=== PATIENT | male | born 1970 | race Caucasian/White ===

== ENCOUNTER 2018-02-01 20:39 | Emergency (ER) | payer SELFPAY ==
[~2018-02-01] VITALS: Ht 152.4 cm; Wt 74.8 kg
[2018-02-01] MEDS ORDERED: LORAZEPAM INJ 2 MG/ML VIAL IM ONE (21:00)
[2018-02-01] MEDS ORDERED: diphenhydrAMINE HCL 50 MG/ML VIAL IM ONE (21:00)
[2018-02-01] MEDS ORDERED: HALOPERIDOL LACTATE INJ 5 MG/ML VIAL IM ONE (21:00)
[2018-02-01 21:12] LABS: BASOPHILS # (AUTO) 0.1 /CMM (0.0-0.2); BASOPHILS % (AUTO) 1.4 % (0.0-2.0); EOSINOPHILS % (AUTO) 4.3 % (0.0-6.0); HEMATOCRIT 42 % (39-51); HEMOGLOBIN 14.3 g/dL (13.5-17.5); LYMPHOCYTES # (AUTO) 4.1 /CMM (0.8-4.8); LYMPHOCYTES % (AUTO) 44.8 % (20.0-44.0); MEAN CORPUSCULAR HGB CONC 35 g/dl (31.0-36.0); MEAN CORPUSCULAR VOLUME 95 fL (80-96); MONOCYTES # (AUTO) 0.8 /CMM (0.1-1.30); MONOCYTES % (AUTO) 8.7 % (2.0-12.0); NEUTROPHILS # (AUTO) 3.7 /CMM (1.8-8.9); NEUTROPHILS % (AUTO) 40.8 % (43.0-81.0); PLATELET COUNT (AUTO) 330 /CMM (150-450); RDW COEFFICIENT OF VARIATION 12.7 (11.5-15.0); RED BLOOD CELL COUNT(AUTO) 4.38 MIL/uL (4.5-6.0); WHITE BLOOD COUNT (AUTO) 9.1 K/uL (4.3-11.0)
[2018-02-01 21:23] LABS: CALCIUM, SERUM 8.5 mg/dL (8.5-10.1); CARBON DIOXIDE 23 mmol/L (21-32); CHLORIDE 106 mmol/L (98-107); GLUCOSE 109 mg/dL (74-106); POTASSIUM 3.6 mmol/L (3.5-5.1); SODIUM SERUM 141 mmol/L (136-145); UREA NITROGEN, BLOOD 8 mg/dL (7-18)
--- NOTE | 2018-02-01 21:25 | NUR ---
to bed 11 bib paramedics c/o altered, etoh. pt verbally abusive, screaming. pt aaox2 no acute distress noted, resp even and unlabored. place pt on cardiac monitoring, continuous pox, o2@2l/nc. will carry out orders.
[2018-02-01 21:30] LABS: ALANINE AMINOTRANSFERASE 96 U/L (12-78); ALBUMIN 3.1 g/dL (3.4-5.0); ALCOHOL, BLOOD 396 mg/dL (0-0); ALKALINE PHOSPHATASE 132 U/L (46-116); ASPARTATE AMINOTRANSFERASE 133 U/L (15-37); BILIRUBIN,DIRECT 0.2 mg/dL (0.0-0.2); BILIRUBIN,TOTAL 0.4 mg/dL (0.2-1.0); TOTAL PROTEIN, SERUM 7.8 g/dL (6.4-8.2)
[2018-02-01 21:31] LABS: ACETAMINOPHEN < 2 ug/ml (10-30); SALICYLATE 1.1 mg/dL (2.8-20.0)
[2018-02-01] MEDS ORDERED: LORAZEPAM INJ 2 MG/ML VIAL ONE (21:41)
[2018-02-01] MEDS ORDERED: HALOPERIDOL LACTATE INJ 5 MG/ML VIAL ONE (21:41)
[2018-02-01] MEDS ORDERED: diphenhydrAMINE HCL 50 MG/ML VIAL ONE (21:41)
--- NOTE | 2018-02-01 21:46 | NUR ---
pt medicated as ordered.
--- NOTE | 2018-02-01 23:47 | NUR ---
pt asleep, no acute distress noted, resp even and unlabored. call light within reach. will continue to monitor pt closely.
--- NOTE | 2018-02-02 01:26 | NUR ---
pt asleep, no acute distress noted, resp even and unlabored. call light within reach. will continue to monitor pt closely.
--- NOTE | 2018-02-02 03:34 | NUR ---
pt awake, pt noted with unsteady gait. assisted pt back to bed. call light yang cantrell. will continue to monitor pt closely.
--- NOTE | 2018-02-02 07:08 | NUR ---
pt asleep, no acute distress noted, resp even and unlabored. call light within reach. will continue to monitor pt closely.
--- NOTE | 2018-02-02 07:13 | NUR ---
REPORT GIVEN TO AM SHIFT MIRACLE MENA.
--- NOTE | 2018-02-02 08:29 | NUR ---
Patient discharged to home in stable condition. Written and verbal after care instructions given. Patient verbalizes understanding of instruction. PT ALERT ORIENTED AMBULATORY STEADY GAIT. GIVEN WATER ABLE TO SWALLOW.
[2018-02-02 08:32] VITALS: BP 121/70
== END 2018-02-02 08:33 | disposition home or self-care (01) ==
LOC: ER 20:42
DX: F10.129 Alcohol abuse with intoxication, unspecified (principal)
CPT/HCPCS: 36415; 80048-TC; 80076-TC; 85025-TC; A4606; G0480; J1200; J1630; J2060; Z7610

== ENCOUNTER 2019-11-05 17:18 | Emergency (ER) | payer SELFPAY ==
[~2019-11-05] VITALS: Ht 162.6 cm; Wt 68.9 kg
--- NOTE | 2019-11-05 17:20 | NUR ---
BIBRA 89, FOUND IN A U-HAUL TRUCK, ETOH, BS 202. TO ER BED 13, HOOKED TO MONITOR, PATIENT AWAKE, AOx2, CHENAGE DTO HOSP GOWN, PROVIDED W WARM BLANKET, AWAITING MD MARK.
--- NOTE | 2019-11-05 17:22 | NUR ---
DR PICKARD AT BEDSIDE
--- NOTE | 2019-11-05 20:24 | NUR ---
PT RESTING COMFORTABLY IN BED. VITAL SIGNS STABLE. STILL APPEARS INTOXICATED. WILL CONTINUE TO MONITOR
--- NOTE | 2019-11-05 21:15 | NUR ---
PT AAOX4. AMBULATORY TO RESTROOM WITH STEADY GAIT
[2019-11-05 21:28] VITALS: BP 122/79
--- NOTE | 2019-11-05 21:28 | NUR ---
Note trev in ED - 11/05/19 at 2130 by CHE Patient given written and verbal discharge instructions. Patient verbalizes understanding of instructions. Patient is ambulatory with steady gait. Refuses offer of mcc placement. Patient given list of available shelters in surrounding area.
--- NOTE | 2019-11-05 21:30 | NUR ---
PT AWAKE, AAOX4. AMBULATORY WITH STEADY GAIT. PER DR. MONTOYA, PT MEDICALLY CLEARED FOR DISCHARGE. Patient given written and verbal discharge instructions. Patient verbalizes understanding of instructions. Patient is ambulatory with steady gait. Refuses offer of group home placement. Patient given list of available shelters in surrounding area.
== END 2019-11-05 21:31 | disposition home or self-care (01) ==
LOC: ER 17:19
DX: F10.129 Alcohol abuse with intoxication, unspecified (principal); Z60.2 Problems related to living alone; Y90.8 Blood alcohol level of 240 mg/100 ml or more
CPT/HCPCS: 36415; G0480

== ENCOUNTER 2021-05-01 12:13 | Emergency (ER) | payer SELFPAY ==
[~2021-05-01] VITALS: Ht 149.9 cm; Wt 74.8 kg
--- NOTE | 2021-05-01 12:13 | NUR ---
PT BIBRA STREETS, ETOH. C/O WEAKNESS. PT IS AAOX4, NOT IN RESPIRATORY DISTRESS, HOOKED TO DEAN OF WOMEN, KEPT RESTED AND COMFORTABLE. WILL CONTINUE TO MONITOR.
--- NOTE | 2021-05-01 12:53 | NUR ---
SEEN AND EXAMINED BY .
--- NOTE | 2021-05-01 13:33 | NUR ---
PT IS WHEELED TO CT SCAN VIA [facility].
[2021-05-01 15:36] VITALS: BP 148/99
--- NOTE | 2021-05-01 15:36 | NUR ---
AMBULATORY W/ STEADY GAIT. AAOX3. PROVIDED W/ MEAL TRAY. REQUESTED TO BE DISCHARGE. MEDICALLY CLEARED. DISCHARGE IN STABLE CONDITION.
== END 2021-05-01 15:36 | disposition home or self-care (01) ==
LOC: ER 12:15
DX: F10.129 Alcohol abuse with intoxication, unspecified (principal); R41.82 Altered mental status, unspecified; Z60.2 Problems related to living alone; Y90.9 Presence of alcohol in blood, level not specified
CPT/HCPCS: 70450-TC

== ENCOUNTER 2021-10-12 19:28 | Inpatient (IN) | payer OTHER ==
[~2021-10-12] VITALS: Ht 170.2 cm; Wt 77.1 kg
--- NOTE | 2021-10-12 19:40 | NUR ---
PATIENT BIBRA [address] [facility] FOR ETOH. PATIENT AWAKE AND VERBALLY RESPONSIVE. RR EVEN AND UNLABORED, NO SOB NOTED. PATIENT CONNECTED TO BAGGING SALVAGER AND POX. SITTER AT BEDSIDE.
[2021-10-12] MEDS ORDERED: NAPROXEN 250 MG TABLET ONE (19:54)
--- NOTE | 2021-10-12 19:59 | NUR ---
UNABLE TO PROVIDE URINE SAMPLE AT THIS TIME . WILL F/U
[2021-10-12] MEDS ORDERED: NAPROXEN 250 MG TABLET PO ONE (20:00)
[2021-10-12 20:02] LABS: HEMOGLOBIN 11.1 g/dL (13.5-17.5)
[2021-10-12 20:05] LABS: BASOPHILS % (AUTO) 0.4 % (0.0-2.0); EOSINOPHILS % (AUTO) 2.5 % (0.0-6.0); HEMATOCRIT 34 % (39-51); LYMPHOCYTES % (AUTO) 25.7 % (20.0-44.0); MEAN CORPUSCULAR HGB CONC 33 g/dl (31.0-36.0); MEAN CORPUSCULAR VOLUME 88 fL (80-96); MONOCYTES # (AUTO) 0.4 K/uL (0.1-1.30); MONOCYTES % (AUTO) 5.4 % (2.0-12.0); NEUTROPHILS # (AUTO) 5.1 K/uL (1.8-8.9); RED BLOOD CELL COUNT(AUTO) 3.86 MIL/uL (4.5-6.0); WHITE BLOOD COUNT (AUTO) 7.7 K/uL (4.3-11.0)
[2021-10-12 20:06] LABS: PLATELET COUNT (AUTO) 45 K/uL (150-450)
[2021-10-12 20:16] LABS: ALBUMIN 3.1 g/dL (3.4-5.0); BILIRUBIN,DIRECT 6.4 mg/dL (0.0-0.2); BILIRUBIN,TOTAL 8.7 mg/dL (0.2-1.0); CALCIUM, SERUM 8.3 mg/dL (8.5-10.1); CREATININE 0.9 mg/dL (0.6-1.3); POTASSIUM 3.1 mmol/L (3.5-5.1); TOTAL PROTEIN, SERUM 8.3 g/dL (6.4-8.2)
[2021-10-12] MEDS ORDERED: FOLIC ACID 1 MG TABLET ONE (20:27)
[2021-10-12] MEDS ORDERED: THIAMINE HCL 100 MG TABLET ONE (20:28)
[2021-10-12] MEDS ORDERED: CYANOCOBALAMIN 500 MCG TABLET ONE (20:28)
[2021-10-12] MEDS ORDERED: THIAMINE HCL 100 MG TABLET PO ONE (20:30)
[2021-10-12] MEDS ORDERED: FOLIC ACID 1 MG TABLET PO ONE (20:30)
[2021-10-12] MEDS ORDERED: Thiamine 100 MG in IV D5W 50 ML IV SCH (20:30)
[2021-10-12] MEDS ORDERED: CYANOCOBALAMIN 500 MCG TABLET PO SCH (20:30)
[2021-10-12] MEDS ORDERED: IV NS 0.9% 1,000 ML BAG IV ONE (20:30)
[2021-10-12] MEDS ORDERED: POTASSIUM CHLORIDE 20 MEQ TAB.PRT.SR PO ONE ×2 (21:00→21:28)
[2021-10-12 21:03] LABS: BAND % (MANUAL) 1 % (0.0-5.0); LYMPHOCYTES % (MANUAL) 21 % (16-48); NEUTROPHILS % (MANUAL) 70 (42-76)
[2021-10-12 21:04] LABS: EOSINOPHILS % (MANUAL) 3 % (0-4); MONOCYTES % (MANUAL) 5 % (0-11.0)
[2021-10-12] MEDS ORDERED: HALOPERIDOL LACTATE INJ 5 MG/ML VIAL ONE (21:23)
[2021-10-12] MEDS ORDERED: diphenhydrAMINE HCL 50 MG/ML VIAL ONE (21:23)
[2021-10-12] MEDS ORDERED: LORAZEPAM INJ 2 MG/ML VIAL ONE (21:24)
--- NOTE | 2021-10-12 21:28 | NUR ---
PT AGITATED, SCREAMING, YELLING. PT MEDICATED ORDERED.
[2021-10-12] MEDS ORDERED: HALOPERIDOL LACTATE INJ 5 MG/ML VIAL IM ONE (21:30)
[2021-10-12] MEDS ORDERED: diphenhydrAMINE HCL 50 MG/ML VIAL IM ONE (21:30)
[2021-10-12] MEDS ORDERED: LORAZEPAM INJ 2 MG/ML VIAL IM ONE (21:30)
--- NOTE | 2021-10-13 01:24 | NUR ---
RESTING COMFORTABLY. VSS.
--- NOTE | 2021-10-13 06:39 | NUR ---
ASLEEP, ON MONITOR, AND PULSE OX.
--- NOTE | 2021-10-13 08:01 | NUR ---
THE PATIENT IS RECEIVED IN ER BED #13. SLEEPING, RESPONSIVE TO VERBAL STIMULI. RESPIRATION REGULAR AND UNLABORED. WILL CONTINUE TO MONITOR THE PATIENT.
--- NOTE | 2021-10-13 11:12 | NUR ---
SS consult: SS consult requested for ETOH abuse. The pt. is a 51 year old male who is A&O X 3. The pt. appears disheveled. Pt. made good eye contact and speech is WNL. TIFF explored pt.'s living situation and pt. stated he has been experiencing homelessness for the past 10 years and sleeps "on the street". TIFF explored pt.'s drug & ETOH use. Pt. states he drinks about every 2 day and will drink "anything I can get my hands on. Pt. stated he last drank Vodka yesterday. Pt. stated alcohol is a problem for him. SW offered referral for rehab and pt. is agreeable. SW expored pt.'s mental health Hx. Pt. stated he has Hx. of Schizophrenia and has been prescribed medications in the past and was non compliant. Pt. cannot name which medications. Pt. denies current SI. Pt. stated he is experiencing intermittent thoughts of hurting others and also experiencing visual and auditory hallucinations that tell pt.,"They want to kill me". TIFF asked pt. if there is anyone specifically that he has thoughts of hurting. Pt. statedit sis no one is specific. Pt. is agreeable to psychiatric Tx to prevent him from possibly hurting anyone. Pt. roque sparanoid thoughts. Pt. remained cooperative throughout interview. TIFF provided pt. with homeless resources and pt. accepted them. Pt. signed homeless waiver and it was placed in the pt.'s chart. TIFF faxed clinical[facility] [[facility] [place] [address] FAX:[phone]] for inpatient psychiatric treatment and alcohol abuse Tx. Resources provided include: Year-round shelters: Virden [facility] [address] [place] [place] [address] ; [place] [facility] [address] [place] [address]; [facility] Pgutbke70[address] [facility] [address] Winter Shelters: SPA 2 | [facility] AlejandracProvider: [facility] Address: Confidential (call for location ) Population Served: Coed # of Beds: 57 SPA 4 | [facility] Provider: Home at Last Address: [address] [facility], [address] # of Beds: 49 Population Served: Coed SPA 6 | [facility] Provider: Home at Last Address: [address] [facility], [address] # of Beds: 49 Population Served: Coed [facility] Provider: Magdiel Wilson FLD Address: [address] [facility] [address] # of Beds: 20 Population Served: Women MIRELLA Facility Provider: Home at Last Address: [address] [facility] [address] # of Beds: 30 Population Served: Women SPA 8 | [facility] Provider: Shawan esquivel Leny Address: [address] [facility] [address] # of Beds: 65 Population Served: Coed Hygiene: [place] [facility]: [address] [facility] ; [facility] [facility] [address] [facility] ; [facility] 6[address] [facility] . Food Resources: [place] [employer] [facility] at [facility]- 5700 [facility]; Meet Each Need with Dignity ([facility]) [address] [facility]; [facility] Food Pantry 1622 [facility]; [facility] 8514 [facility]. Mental Health resources provided: [facility] [address] [place] [address] ; [facility] [address] [facility] [address], [place] [address] ; Sheree Amin [facility] [address] [place] [address] ; [facility] [place], [place] [phone] Healthcare Clinics: [facility] [address], [address] [place]. [place] ; [facility] [address] [facility] [address] [place] [address]; [place] [address] [place] [address] [phone]) [phone] Counseling--Outpatient Located Within [facility] [address] [facility], [place] [address] (Specializes in in-depth psychotherapy for emotional distress: anxiety, depression, interpersonal conflicts, life transitions, childhood abuse) [facility] [address] [place] [address] (Assist with solving problem marital difficulties, separation & divorce, aging parents, & grief, chronic & terminal illness) [facility] [address] [place] [address] (Deal with loss & grief, anxiety, marital difficulties) Homebound/Mental Health Services [address], [address] [place] [address] (Provide in-home mental services to people who are incapable of leaving their homes) Organization for Needs of the Elderly Senior Service/Resource Center [address] [place] [address] [facility] [address] [place] [address] [address] [facility] Partial Hospitalization and Intensive Outpatient Program (Managed Care and [place] Only)[address] Reynold Jacobson. [facility] [phone] [facility] Partial Hospitalization and Outpatient Cerfvgi01066 [address] [place], [place] [phone] [facility] [place] Ccd[address] [place], [place] [phone] [facility] David Arana Partial Hospitalization and Outpatient Ilujgvh78775 Roman Bowman, [phone] Substance Abuse resources provided included: [facility] Substance Abuse Self-Helpline ([facility]) ; CRI -HELP [address] [facility]. [place] [address] ; [facility] [place] [address] [facility] [address] ; [facility] Rehabilitation Program [address] [facility]. [place] [phone] ; [facility] 400 [facility] [address] ; [facility] 4940 [facility] [phone] ; Marie [facility] 909 [facility] [place] [phone] ; [facility] Substance Abuse Helpline([facility])-[facility] ; [facility] ; [facility] [place]; [facility] [place]; I-ADARP Inter Agency Drug Abuse Recovery David Arana; [place] [facility] Ful[place]; [place] Fulda; [facility] [place]; [facility] [place], [facility]; Alcoholics Anonymous -SFV; Qy-Lpqp-Cluklwc ; Marijuana Anonymous -SFV; Narcotics Anonymous [email or web address];
--- NOTE | 2021-10-13 13:05 | NUR ---
COVID ANTIGEN SWAB COLLECTED AND SENT TO LAB
--- NOTE | 2021-10-13 23:58 | NUR ---
JUSTICE SAN MD SPEAKING WITH JERONIMO PALOMINO
[2021-10-14] MEDS ORDERED: LORAZEPAM INJ 2 MG/ML VIAL IV ONE
[2021-10-14] MEDS ORDERED: ACETAMINOPHEN 325 MG TABLET PO PRN (00:30)
[2021-10-14] MEDS ORDERED: ONDANSETRON HCL/PF 4 MG/2 ML VIAL IVP PRN (00:30)
[2021-10-14] MEDS ORDERED: MAGNESIUM HYDROXIDE 30 ML UDC PO PRN (00:30)
[2021-10-14] MEDS ORDERED: ZOLPIDEM TARTRATE 5 MG TABLET PO PRN (00:30)
[2021-10-14] MEDS ORDERED: MAG HYDROX/AL HYDROX/SIMETH 30 ML UDC PO PRN (00:30)
[2021-10-14] MEDS ORDERED: Z GUARD REMEDY 2 OZ OINT TP PRN ×2 (00:30→07:30)
[2021-10-14] MEDS ORDERED: IV NS 0.9% 1,000 ML IV PRN ×2 (00:30→11:00)
[2021-10-14] MEDS ORDERED: LORAZEPAM INJ 2 MG/ML VIAL IV PRN (00:30)
--- NOTE | 2021-10-14 00:58 | NUR ---
COVID SWAB SENT TO LAB
--- NOTE | 2021-10-14 01:45 | NUR ---
Patient is resting comfortably in bed with eyes closed. Easily aroused. VSS
--- NOTE | 2021-10-14 02:30 | NUR ---
Patient is resting comfortably in bed with eyes closed. Easily aroused. VSS
--- NOTE | 2021-10-14 06:23 | NUR ---
pt sleeping, attached to monitor and pox.
--- NOTE | 2021-10-14 07:31 | NUR ---
GAVE REPORT TO MIRACLE FARIA FOR ERIC
[2021-10-14] MEDS ORDERED: PANTOPRAZOLE 40 MG VIAL IV SCH (09:00)
[2021-10-14] MEDS ORDERED: PANTOPRAZOLE 40 MG VIAL ONE (09:50)
[2021-10-14] MEDS ORDERED: POTASSIUM CHLORIDE 20 MEQ TAB.PRT.SR PO SCH (11:00)
[2021-10-14] MEDS ORDERED: POTASSIUM CHLORIDE 20 MEQ TAB.PRT.SR PO ONE (11:32)
--- NOTE | 2021-10-14 13:15 | NUR ---
LEFT AMA, REFUSED TO SIGN
--- NOTE | 2021-10-14 13:45 | NUR ---
TFIF LEE AT BEDSIDE
--- NOTE | 2021-10-14 14:15 | NUR ---
IV removed. Catheter intact and site benign. Pressure and 4x4 applied to site. No bleeding noted.Patient discharged to home in stable condition. Written and verbal after care instructions given. Patient verbalizes understanding of instruction.
--- NOTE | 2021-10-14 14:15 | NUR ---
LEFT AMA, REFUSED TO SIGN
--- NOTE | 2021-10-14 14:37 | NUR ---
"SS Consult: SS consult for ETOH. Pt. Is a 51-year-old male. Pt. demonstrates adequate insight to the reason for hospitalization. Pt. was oriented x3, alert, and cooperative. During interview, pt. was capable of following directions, made appropriate eye-contact, and appeared tired. Pt.'s speech was at a normal rate. Pt.'s mood was elevated. SW explored pt.'s Hx of mental health and substance abuse. Pt. denies suicidal or homicidal. Pt. denies auditory hallucinations, visual hallucinations, paranoia, or delusions. Pt. reported having depression and anxiety. Pt. mentioned that he deals with it by drinking. Per pt., he drinks Vodka every day. Pt. mentioned that he tried receiving help in the past. SW explored pt.'s living situation. Per pt., he is homeless. Per pt., he reports having no adequate support from family. Pt. expressed that he wants bus pass. SW provide pt. with bus pass. Pt. signed homeless waiver and its placed in chart. Plan: SW provided available resources and pt. accepted. Once discharge, per pt., he will return back to the streets, but will use resources that are provided. Resources Provided: Winter Shelters: SPA 2 | [facility]: [facility] Address: Confidential (call for location ) Population Served: Coed # of Beds: 57 SPA 4 | [facility] Provider: Home at Last Address: [address] [place] [address] # of Beds: 49 Population Served: Coed SPA 6 | [facility] Provider: Home at Last Address: [address] [place] [address] # of Beds: 49 Population Served: Makennad [facility] Provider: Magdiel Wilson ARAamir Address: [address] [facility] [address] # of Beds: 20 Population Served: Women MIRELLA Facility Provider: Home at Last Address: [address] [facility] [address] # of Beds: 30 Population Served: Women SPA 8 | [facility] Provider: [facility] [place] Address: [address] [facility] [address] # of Beds: 65 Population Served: Makennad Year-round shelters: [facility] [address] [place] [address] ; [facility] [address] [place] [address]; [place] [facility] [address] [facility] [address] Winter Shelters: Aleena Paez [place] Provider: [facility] Address: [address] EvanseDenise Mclaughlin, [address] # of Beds: 47 Population Served: Coed [facility] 6 | [facility] Naty Riggins [place] Provider: Home at Last Address: [address] [place] [address], [address] # of Beds: 66 Population Served: [place] [employer] [place] Provider: First to Serve Address: [address] [facility], [address] # of Beds: 56 Population Served: Makennad Alfonso Cabrera [place] Provider: /[facility]. [facility] Address: 8[address] [facility], [address] # of Beds: 49 Population Served: Coed SPA 8 | [facility] Provider: First to Serve Address: [address] [facility], [address] # of Beds: 37 Population Served: Makennad Hygiene: [place] [facility]: [address] Zuñiga ; [facility] [facility] [address] [facility] ; [facility] [address] . Food Resources: [place] [employer] Pant[facility] at [facility]- [address]ess[address]. [place]; Meet Each Need with Dignity ([facility]) [address] Jarrod De [facility]; [facility] Food Pantry 4390 [facility]; [facility] 8578 David [facility] Bunkie. Mental Health resources provided: [facility] [address] [place], [place] [address] ; [facility] [address] [facility] [address], [place] [address] ; [facility] [address] [facility] [place], [place] [phone] ; [facility] [address] [place], [place] [address] Healthcare Clinics: [facility] 655[address] David H[facility], [address] [place]. [place] ; [facility] [address] [facility] [address] [place] [address]; [facility] [address] [facility]. [place] [phone] Counseling--Outpatient [facility] [address] [facility], [place] [address] (Specializes in in-depth psychotherapy for emotional distress: anxiety, depression, interpersonal conflicts, life transitions, childhood abuse) [facility]ance Center [address] [place] [address] (Assist with solving problem marital difficulties, separation & divorce, aging parents, & grief, chronic & terminal illness) [facility] [address] [place] [address] (Deal with loss & grief, anxiety, marital difficulties) Homebound/Mental Health Services [address] [facility], [address] [place], [place] [id number] (Provide in-home mental services to people who are incapable of leaving their homes) Organization for Needs of the Elderly Senior Service/Resource Center [address] [place] [address] [facility] 6514 [facility] [place] [address] PSYCHIATRIC OUTPATIENT SERVICES [facility] Partial Hospitalization and Intensive Outpatient Program (Managed Care and [place] Only)[address] [place] [address]. [facility] [phone] [facility] Partial Hospitalization and Outpatient Z[address]laa[address] [place] [address] [place], [place] [phone] [facility] [place] [id number] [facility] [address] [address] [place], [place] [phone] [facility] Partial Hospitalization and Outpatient [id number] Emelita [facility] Sumit, [phone] Substance Abuse resources provided included: [facility] Substance Abuse Self-Helpline ([facility]) ; CRI -HELP [address] [facility]. [place] [address] ; [facility] [address] [facility] [address] ; [facility] Rehabilitation Program [address] [place] vdElmhurst Hospital Center [address] ; [place] [address] [facility] [address] ; [facility] 4940 [facility] [address] ; Marie [facility] 909 [place] [facility] [phone] ; [facility] Substance Abuse Helpline([facility])-[facility] ; [facility] ; [facility] Carmichael; [facility]; Cri[facility]Help [place]; I-ADARP Inter Agency Drug Abuse Recovery David Hidalgobharath; [place] [facility] Sylm[facility]; [place] Roberta; [facility] Twila; [facility]. Edenilson Reyna; Alcoholics Anonymous -SFV; Ruddy ; Marijuana Anonymous -SFV; Narcotics Anonymous www.[email or web address];"
[2021-10-14 14:40] VITALS: BP 120/69
[2021-10-14] MEDS ORDERED: CHLORDIAZEPOXIDE HCL 25 MG CAPSULE PO SCH (17:00)
[2021-10-14] MEDS ORDERED: Thiamine 100 MG in IV D5W 50 ML IV SCH (21:00)
[2021-10-15] MEDS ORDERED: THIAMINE HCL 100 MG TABLET PO SCH (13:01)
== END 2021-10-14 14:15 | disposition left against medical advice (07) | DRG 770 ==
LOC: EDBD → ER 19:32 → TRANSITION 10-14 05:17
PROVIDERS: ADMIT Internal Medicine; ATTEND Internal Medicine
DX: F10.129 Alcohol abuse with intoxication, unspecified (principal); G93.41 Metabolic encephalopathy; E43 Unspecified severe protein-calorie malnutrition; K70.10 Alcoholic hepatitis without ascites; E87.2 Acidosis; Z20.822 Contact with and (suspected) exposure to COVID-19; Z59.00 Homelessness unspecified; Y90.8 Blood alcohol level of 240 mg/100 ml or more; E87.6 Hypokalemia; E80.6 Other disorders of bilirubin metabolism; Z68.26 Body mass index [BMI] 26.0-26.9, adult; E88.09 Other disorders of plasma-protein metabolism, not elsewhere classified
CPT/HCPCS: 36415; 70450-TC; 80048-TC; 80076-TC; 85025-TC; 86850-TC; C9113; G0378; G0480; J1200; J1630; J2060; J3411; J7060; U0003

== ENCOUNTER 2021-10-14 19:27 | Emergency (ER) | payer OTHER ==
[~2021-10-14] VITALS: Ht 167.6 cm; Wt 67.1 kg
[2021-10-14] MEDS ORDERED: IV NS 0.9% 1,000 ML BAG IV ONE (22:00)
[2021-10-14] MEDS ORDERED: Thiamine 100 MG in IV D5W 50 ML IV SCH (22:00)
[2021-10-14 22:08] LABS: BASOPHILS % (AUTO) 0.7 % (0.0-2.0); EOSINOPHILS % (AUTO) 2.6 % (0.0-6.0); HEMATOCRIT 43 % (39-51); LYMPHOCYTES # (AUTO) 1.7 K/uL (0.8-4.8); LYMPHOCYTES % (AUTO) 36.3 % (20.0-44.0); MEAN CORPUSCULAR HGB CONC 33 g/dl (31.0-36.0); MEAN CORPUSCULAR VOLUME 95 fL (80-96); MONOCYTES # (AUTO) 0.4 K/uL (0.1-1.30); MONOCYTES % (AUTO) 9.1 % (2.0-12.0); NEUTROPHILS # (AUTO) 2.5 K/uL (1.8-8.9); NEUTROPHILS % (AUTO) 51.3 % (43.0-81.0); PLATELET COUNT (AUTO) 133 K/uL (150-450); RED BLOOD CELL COUNT(AUTO) 4.47 MIL/uL (4.5-6.0); WHITE BLOOD COUNT (AUTO) 4.8 K/uL (4.3-11.0)
[2021-10-14 22:17] LABS: CALCIUM, SERUM 8.2 mg/dL (8.5-10.1); CREATININE 0.7 mg/dL (0.6-1.3); POTASSIUM 3.4 mmol/L (3.5-5.1)
[2021-10-14 22:26] LABS: ALBUMIN 3.2 g/dL (3.4-5.0); BILIRUBIN,TOTAL 1.3 mg/dL (0.2-1.0); TOTAL PROTEIN, SERUM 7.6 g/dL (6.4-8.2)
--- NOTE | 2021-10-14 22:51 | NUR ---
URINE COLLECTED AND SENT TO LAB
--- NOTE | 2021-10-15 00:15 | NUR ---
PT ATTACHED TO MONITOR, BREATHING EVENLY AND UNLABORED
[2021-10-15 01:54] LABS: BILIRUBIN,URINE NEGATIVE (NEGATIVE); COLOR,URINE YELLOW (YELLOW); LEUKOCYTE ESTERASE ,URINE NEGATIVE (NEGATIVE); NITRITE, URINE NEGATIVE (NEGATIVE); PROTEIN,URINE NEGATIVE (NEGATIVE); UGLUCOSE NEGATIVE (NEGATIVE); UROBILINOGEN,URINE 0.2 EU/dL (0.2)
--- NOTE | 2021-10-15 02:30 | NUR ---
PT SLEEPING, BRETHING EVENLY AND UNLABORED.
--- NOTE | 2021-10-15 04:17 | NUR ---
Patient is resting comfortably in bed with eyes closed. Easily aroused. VSS
[2021-10-15 04:43] VITALS: BP 128/88
--- NOTE | 2021-10-15 04:43 | NUR ---
Patient discharged to home in stable condition. Written and verbal after care instructions given. Patient verbalizes understanding of instruction.
--- NOTE | 2021-10-15 04:44 | NUR ---
PATIENT IN STABLE CONDITION, WITH STEADY GAIT.
[2021-10-15 08:02] LABS: BACTERIA,URINE None seen /HPF (None Seen); WBC,URINE 0-2 /HPF (0-3)
[2021-10-15 08:03] LABS: SQUAMOUS EPITHELIAL CELL,UR None Seen /HPF (None Seen)
== END 2021-10-15 04:44 | disposition home or self-care (01) ==
LOC: EDBD 19:31 → ER 19:31
DX: F10.129 Alcohol abuse with intoxication, unspecified (principal); Z59.00 Homelessness unspecified; Y90.9 Presence of alcohol in blood, level not specified
CPT/HCPCS: 36415; 80048; 80076; 80307; 80320; 81001; 85025; 87081; 96365; 99285; J3411; J7030; J7060; G0480